=== PATIENT | male | born 1955 | race Caucasian/White ===

== ENCOUNTER 2016-06-18 15:57 | Inpatient (IN) | payer BC ==
[~2016-06-18] VITALS: Ht 177.8 cm; Wt 90.4 kg
[2016-08-26] VITALS (10 sets, daily range): BP systolic 117–156; BP diastolic 71–86; PULSE 76–93; TEMP 98–98.6
[2016-08-26] MEDS ORDERED: SINGULAIR 110 MG/TAB PO (11:19)
[2016-08-26] MEDS ORDERED: PRILOSEC 20MG20 MG PO (11:20)
[2016-08-26] MEDS ORDERED: HYZAAR 12.5 MG-1 TAB PO (11:21)
[2016-08-26] MEDS ORDERED: ALLEGRA ALLERGY60 MG PO (11:22)
[2016-08-26] MEDS ORDERED: RT ADVAIR 228 DISKUS IH (11:22)
[2016-08-27] VITALS (7 sets, daily range): BP systolic 125–168; BP diastolic 61–85; PULSE 69–91; TEMP 97.7–98.5
[2016-08-27 07:12] LABS: HEMATOCRIT 38.4 % (42.0-52.0); HEMOGLOBIN 12.9 g/dl (13.5-18.0)
[2016-08-28 03:34] VITALS: BP 126/68; PULSE 73; TEMP 97.2
[2016-08-28 06:41] LABS: HEMATOCRIT 33.9 % (42.0-52.0); HEMOGLOBIN 11.1 g/dl (13.5-18.0)
[2016-08-28 07:48] VITALS: BP 125/68; PULSE 71; TEMP 97.4
[2016-08-28] MEDS ORDERED: NORCO 325 MG-7.1 TAB (10:21)
[2016-08-28] MEDS ORDERED: ROXICODONE 55 MG/TAB PO (10:22)
[2016-08-28] MEDS ORDERED: ASPIRIN 32325 MG/TAB PO ×2 (15:01→15:02)
== END 2016-08-28 15:59 | disposition home or self-care (01) | DRG 470 ==
LOC: JCC 08-26 10:36
PROVIDERS: Orthopaedic Surgery
PROC: 0SRD0J9 Replacement of Left Knee Joint with Synthetic Substitute, Cemented, Open Approach (ICD-10-PCS; principal; 2016-08-26 16:00)
DX: M17.5 Other unilateral secondary osteoarthritis of knee (principal); M21.162 Varus deformity, not elsewhere classified, left knee; Z85.820 Personal history of malignant melanoma of skin; Z87.442 Personal history of urinary calculi
CPT/HCPCS: A4315; A9284; C1713; C1776; J0690; J1100; J1170; J2250; J2405; J2704; J3010; J7120

== ENCOUNTER → 2016-08-22 | Outpatient (CLI) | payer BC ==
[~2016-08-22] MED LIST: ADVIL200 MG PO; ALLEGRA ALLERG180 MG PO; ALLEGRA ALLERGY60 MG PO; ASPIRIN 32325 MG/TAB PO; CEPHALEXIN500 M1 PO; HYZAAR 12.5 MG-1 TAB PO; NORCO 325 MG-7.1 TAB; NORCO 325 MG-7.1 TAB PO; PRILOSEC 20MG20 MG PO; ROXICODONE 55 MG/TAB PO; RT ADVAIR 228 DISKUS IH; SINGULAIR 110 MG/TAB PO; TYLENOL PM EXTR1 TA1 PO
[2016-08-22 16:48] LABS: HIV 1/2 Antibodies Non-Reactive; HIV-1p24 Antigen Non-Reactive
== END ==
LOC: COL.LAB 15:30
PROVIDERS: Orthopaedic Surgery
DX: Z01.812 Encounter for preprocedural laboratory examination (principal); M25.862 Other specified joint disorders, left knee

== ENCOUNTER 2017-01-10 13:59 | Inpatient (IN) | payer BC ==
[~2017-01-10] VITALS: Ht 177.8 cm; Wt 93.8 kg
[~2017-01-10 13:59] MED LIST changes: -ADVIL200 MG PO; -ALLEGRA ALLERG180 MG PO; -CEPHALEXIN500 M1 PO; -NORCO 325 MG-7.1 TAB PO; -TYLENOL PM EXTR1 TA1 PO
[2017-02-07] MEDS ORDERED: ADVIL200 MG PO (11:38)
[2017-02-07] MEDS ORDERED: TYLENOL PM EXTR1 TA1 PO (11:38)
[2017-02-07] MEDS ORDERED: RT ADVAIR 228 DISKUS IH (11:39)
[2017-02-07] MEDS ORDERED: ALLEGRA ALLERG180 MG PO (11:41)
[2017-02-07] MEDS ORDERED: CEPHALEXIN500 M1 PO (11:42)
[2017-03-04] VITALS (9 sets, daily range): BP systolic 115–139; BP diastolic 42–76; PULSE 45–64; TEMP 97.7–97.8
[2017-03-05] VITALS: BP 136/73; PULSE 60; TEMP 98.2
[2017-03-05 04:00] VITALS: BP 135/69; PULSE 66; TEMP 98.4
[2017-03-05 06:27] LABS: HEMATOCRIT 37.6 % (42.0-52.0); HEMOGLOBIN 12.3 g/dl (13.5-18.0)
[2017-03-05 11:44] VITALS: BP 155/72; PULSE 61; TEMP 98.2
[2017-03-05 17:27] VITALS: BP 148/72; PULSE 63; TEMP 97.8
[2017-03-05 20:00] VITALS: BP 162/80; PULSE 75; TEMP 99.1
[2017-03-06 04:00] VITALS: BP 158/83; PULSE 84; TEMP 97.5
[2017-03-06 05:43] LABS: HEMOGLOBIN 12.1 g/dl (13.5-18.0)
[2017-03-06 05:54] LABS: HEMATOCRIT 36.6 % (42.0-52.0)
[2017-03-06 08:20] VITALS: BP 159/89; PULSE 77; TEMP 98.1
[2017-03-06 12:45] VITALS: BP 131/66; PULSE 72; TEMP 97.5
[2017-03-06 15:31] VITALS: BP 142/76; PULSE 76; TEMP 98.3
[2017-03-06 20:57] VITALS: BP 158/80; PULSE 84; TEMP 98.4
[2017-03-07 00:51] VITALS: BP 153/78; PULSE 75; TEMP 98
[2017-03-07 03:51] VITALS: BP 142/53; PULSE 76; TEMP 98.2
[2017-03-07 07:02] LABS: HEMATOCRIT 36.2 % (42.0-52.0)
[2017-03-07 07:23] VITALS: BP 147/65; PULSE 78; TEMP 98.3
[2017-03-07] MEDS ORDERED: ASPIRIN 32325 MG/TAB PO (10:46)
[2017-03-07] MEDS ORDERED: NORCO 325 MG-7.1 TAB PO (10:48)
[2017-03-07] MEDS ORDERED: ROXICODONE 55 MG/TAB PO (10:48)
== END 2017-03-07 11:10 | disposition home or self-care (01) | DRG 470 ==
LOC: JCC 03-04 06:51
PROVIDERS: Orthopaedic Surgery
PROC: 0SRC0J9 Replacement of Right Knee Joint with Synthetic Substitute, Cemented, Open Approach (ICD-10-PCS; principal; 2017-03-04 10:15)
DX: M17.11 Unilateral primary osteoarthritis, right knee (principal); Z85.820 Personal history of malignant melanoma of skin; Z96.652 Presence of left artificial knee joint
CPT/HCPCS: A4315; A9284; C1713; C1776; J0690; J1885; J2250; J2704; J7042; J7120

== ENCOUNTER 2017-02-07 11:02 | Day surgery (SDC) | payer BC ==
[~2017-02-07] VITALS: Ht 177.8 cm; Wt 95.4 kg
[2017-02-07 11:27] VITALS: BP 135/86; PULSE 63; TEMP 98.5
[2017-02-07] MEDS ORDERED: TYLENOL PM EXTR1 TA1 PO (11:38)
[2017-02-07] MEDS ORDERED: ADVIL200 MG PO (11:38)
[2017-02-07] MEDS ORDERED: RT ADVAIR 228 DISKUS IH (11:39)
[2017-02-07] MEDS ORDERED: ALLEGRA ALLERG180 MG PO (11:41)
[2017-02-07] MEDS ORDERED: CEPHALEXIN500 M1 PO (11:42)
[2017-02-07 13:30] VITALS: BP 119/73; PULSE 65; TEMP 97.9
[2017-02-07 13:45] VITALS: BP 116/69; PULSE 64
[2017-02-07 14:12] VITALS: BP 112/68; PULSE 62
== END 2017-02-07 13:59 | disposition home or self-care (01) ==
LOC: SDCO 11:02
DX: Z12.11 Encounter for screening for malignant neoplasm of colon (principal); D12.6 Benign neoplasm of colon, unspecified; K57.30 Diverticulosis of large intestine without perforation or abscess without bleeding; K21.9 Gastro-esophageal reflux disease without esophagitis; I10 Essential (primary) hypertension; J45.909 Unspecified asthma, uncomplicated; Z86.010 Personal history of colon polyps
CPT/HCPCS: OP; J2250; J3010; J7030

== ENCOUNTER 2020-10-06 12:52 | Outpatient (RCR) | payer OTHER ==
[~2020-10-06 12:52] MED LIST changes: +ADVIL200 MG PO; +ALLEGRA ALLERG180 MG PO; +CEPHALEXIN500 M1 PO; +NORCO 325 MG-7.1 TAB PO; +TYLENOL PM EXTR1 TA1 PO
== END 2020-12-27 | disposition home or self-care (01) ==
LOC: WSOH
DX: S16.1XXA Strain of muscle, fascia and tendon at neck level, initial encounter (principal); J45.909 Unspecified asthma, uncomplicated; I10 Essential (primary) hypertension; Z96.653 Presence of artificial knee joint, bilateral; Z98.890 Other specified postprocedural states; Y99.0 Civilian activity done for income or pay

== ENCOUNTER → 2023-08-21 | Outpatient (CLI) | payer OTHER | LOC: COL.RAD 09:47 | DX: M47.812 Spondylosis without myelopathy or radiculopathy, cervical region (principal); M25.78 Osteophyte, vertebrae; M48.02 Spinal stenosis, cervical region; R91.8 Other nonspecific abnormal finding of lung field ==